=== PATIENT | male | born 1945 | race Caucasian/White ===

== ENCOUNTER 2019-04-04 16:17 | Emergency (ER) | payer MEDICARE, BC ==
[2019-04-04] MEDS ORDERED: NS 0.9% 1000 ML** 1,000 ML IV ONE (17:09)
--- NOTE | 2019-04-04 17:13 | UC ---
UC General HPI - HPI Summary HPI Summary: 74-year-old male comes in with a chief complaint of fevers chills disorientation dysuria and weakness. This all started yesterday. Patient recently had a urinary catheter taken out. He had the catheter in because he had a laminectomy of the lumbar spine done one week ago. He did have some acetaminophen around noontime today. Patient does have Parkinson's. He is weaker today than yesterday. No complaint of chest congestion. The patient's daughter is a physician and she checked his laminectomy site earlier today and she said there was no erythema no drainage. Patient denies any back pain. - History of Current Complaint Chief Complaint: [facility] Stated Complaint: FEVER,CHILLS,DISORIENTATION Time Seen by Provider: 04/04/19 16:26 Pain Intensity: 0 - Allergy/Home Medications Allergies/Adverse Reactions: Allergies Allergy/AdvReac Type Severity Reaction Status Date / Time Penicillins Allergy Rash Verified 04/04/19 16:25 Home Medications: Home Medications Carbidopa/Levodopa ER 25/100 [Carbidopa-Levo ER 25-100 Tab] 2 tab PO TID [History Confirmed 04/04/19] Ezetimibe/Simvastatin [Vytorin 10-40 mg Tablet] 1 each PO BEDTIME 04/04/19 [ History Confirmed 04/04/19] Pramipexole Di-HCl [Pramipexole Dihydrochlori] 1 mg PO BID 04/04/19 [History Confirmed 04/04/19] Tamsulosin CAP* [Flomax CAP*] 0.4 mg PO BEDTIME 04/04/19 [History Confirmed 05/13] PMH/Surg Hx/FS Hx/Imm Hx Previously Healthy: Yes - parkinsons - Surgical History Surgical History: Yes Surgery Procedure, Year, and Place: lumbar laminectomy 03/27/19; left hand; b/l knee arthroscopies; appy, inquinal hernia; pacemaker - Family History Known Family History: Positive: Non-Contributory - Social History Alcohol Use: Rare Substance Use Type: None Smoking Status (MU): Never Smoked Tobacco Review of Systems All Other Systems Reviewed And Are Negative: Yes Constitutional: Positive: Fever, Chills, Other - see hpi Skin: Positive: Negative Eyes: Positive: Negative ENT: Positive: Negative Respiratory: Positive: Negative Cardiovascular: Positive: Negative Gastrointestinal: Positive: Negative Genitourinary: Positive: Dysuria, Frequency, Urgency Motor: Positive: Weakness Neurovascular: Positive: Negative Musculoskeletal: Positive: Negative Neurological: Positive: Weakness Psychological: Positive: Negative Is Patient Immunocompromised?: No Physical Exam Triage Information Reviewed: Yes Appearance: No Pain Distress, Well-Nourished, Ill-Appearing - mild Vital Signs: Initial Vital Signs Temp 100.8 F 04/04/19 16:26 Pulse 83 04/04/19 16:26 Resp 24 04/04/19 16:26 BP 92/56 04/04/19 16:26 Pulse Ox 98 04/04/19 16:26 Vital Signs Reviewed: Yes Eye Exam: Normal Eyes: Positive: Conjunctiva Clear ENT: Positive: Pharynx normal Neck: Positive: Supple Respiratory: Positive: No respiratory distress, Crackles - at bases Cardiovascular: Positive: RRR Abdomen Description: Positive: Soft, Other: - Patient reports mild tenderness to palpation suprapubic region. Bowel Sounds: Positive: Present Musculoskeletal: Positive: ROM Intact, Other: - Generalized weakness Neurological: Positive: Other: - Awake mildly confused Psychological: Positive: Age Appropriate Behavior Skin Exam: Normal Course/Dx - Course Course Of Treatment: Patient's temperature is 100.8 his blood pressure is low he is confused and weak. His urine has leukocytes in that he has symptoms of a UTI and sepsis. This was all discussed with the patient and his family. Patient is being taken to the emergency department by ambulance. Patient had acetaminophen at noontime which was 5 hours ago it was 1000 mg and is not allowed to take nonsteroidal anti-inflammatories therefore no antipyretics were given here in clinic. - Diagnoses Provider Diagnosis: UTI (urinary tract infection), Sepsis Discharge ED - Sign-Out/Discharge Documenting (check all that apply): Patient Departure All imaging exams completed and their final reports reviewed: No Studies - Discharge Plan Condition: Stable Disposition: TRANS HIGHER LVL OF CARE FAC Referrals: Albert Hollins DO [Primary Care Provider] - - Billing Disposition and Condition Condition: STABLE Disposition: Trans Higher Lvl of Care Fac
[2019-04-04 17:31] VITALS: BP 108/62
--- NOTE | 2019-04-07 07:10 | UC ---
- Progress Note Progress Note: Pt was transferred higher level - please call pt - see if started on abx for UTI + Pseudomonas Ljj Course/Dx - Diagnoses Provider Diagnoses: UTI (urinary tract infection), Sepsis Discharge ED - Sign-Out/Discharge Documenting (check all that apply): Post-Discharge Follow Up All imaging exams completed and their final reports reviewed: No Studies - Discharge Plan Condition: Stable Disposition: TRANS HIGHER LVL OF CARE FAC Referrals: Albert Hollins DO [Primary Care Provider] - - Billing Disposition and Condition Condition: STABLE Disposition: Trans Higher Lvl of Care Fac
== END 2019-04-04 17:20 | disposition short-term general hospital (02) ==
LOC: UCCORT 16:17
DX: N39.0 Urinary tract infection, site not specified (principal); G20 Parkinson's disease; A41.9 Sepsis, unspecified organism; R03.1 Nonspecific low blood-pressure reading; Z88.0 Allergy status to penicillin
CPT/HCPCS: 81003; 87077; 87086; 87186; 99213; G0463